=== PATIENT | female | born 1935 | race Caucasian/White ===

== ENCOUNTER 2019-04-10 12:35 | Inpatient (IN) | payer MEDICARE, OTHER ==
[~2019-04-10] VITALS: Ht 152.4 cm; Wt 77.0 kg
--- NOTE | 2019-04-10 13:21 | ERD ---
ER Documentation Chief Complaint Chief Complaint [facility] from home, c/o syncope @ 0900 HPI The patient is an 84-year-old female, presenting to the ER because she tented around 9 AM today. The detail is unclear. She does not remember what happened, the daughter found her on the floor. She denies headache, neck pain, chest pain, dyspnea, abdominal pain, vomiting, dysuria, diarrhea, fecal/urinary incontinence, tongue bite. She does not smoke nor drink He had a Holter monitor by her intellectual property paralegal Dr. Urbano about a month ago, who informed her that she may need to have a pacemaker Past medical history: CAD, hypertension, dyslipidemia, diabetes mellitus Past surgical history: Hysterectomy ROS All systems reviewed and are negative except as per history of present illness. Medications Home Meds Reported Medications Chlorhexidine Gluconate* (Chlorhexidine Gluconate*) 118 Ml Liquid, 10 ML TOP DAILY for GARGLE, ML 04/10/19 Desvenlafaxine Succinate (Desvenlafaxine Succinate ER) 25 Mg Tab.er.24h, 1 TAB ORAL DAILY 04/10/19 Icosapent Ethyl (VASCEPA) 1 Gm Capsule, 1 CAP ORAL BID 04/10/19 Linaclotide (LINZESS) 145 Mcg Capsule, 1 CAP ORAL DAILY 04/10/19 Azilsartan-Chlorthalidone (Edarbyclor) 40-25 Mg Tablet, 1 TAB ORAL DAILY 04/10/19 Cholecalciferol* (Vitamin D3*) 1,000 Unit Tablet, 2000 UNIT PO DAILY, TAB 04/10/19 Sitagliptin* (Januvia*) 100 Mg Tablet, 1 TAB ORAL QHS 04/10/19 Solifenacin* (Vesicare*) 10 Mg Tablet, 1 TAB ORAL DAILY 04/10/19 Atorvastatin (Atorvastatin) 10 Mg Tablet, 1 TAB ORAL QHS 04/10/19 Diclofenac Sodium* (Voltaren* Gel) 1% -100 Gm Gel, 2 GM TOP TID, #1 TUB 04/10/19 Isosorbide Mononitrate* (Isosorbide Mononitrate*) 60 Mg Tab.er.24h, 1 TAB ORAL DAILY 04/10/19 Aspirin* (Aspirin* EC) 81 Mg Tablet.dr, 81 MG PO DAILY, TAB 04/10/19 Diphenhydramine Hcl (Banophen) 25 Mg Capsule, 1 CAP ORAL QHS 04/10/19 Metoprolol Tartrate* (Lopressor*) 50 Mg Tab, 1 TAB ORAL BID 04/10/19 Ferrous Sulfate* (Ferrous Sulfate*) 325 Mg Tabec, 1 TAB ORAL DAILY 04/10/19 Allergies Allergies: Coded Allergies: No Known Allergy (Unverified , 04/10/19) PMhx/Soc Hx Neurological Disorder: No Hx Respiratory Disorders: No Hx Cardiac Disorders: Yes (HTN) Hx Psychiatric Problems: No Hx Miscellaneous Medical Probl: Yes (DM) Hx Alcohol Use: No Hx Substance Use: No Hx Tobacco Use: No Smoking Status: Never smoker Physical Exam Vitals Vital Signs Date Temp Pulse Resp B/P (MAP) Pulse Ox O2 O2 Flow FiO2 Time Delivery Rate 04/10/19 98.1 68 18 142/74 93 13:14 (96) Physical Exam Const: No acute distress. Head: Atraumatic. Eyes: Normal Conjunctiva. ENT: Normal External Ears, Nose and Mouth. Neck: Full range of motion. No meningismus. Resp: Clear to auscultation bilaterally. Cardio: Regular rate and rhythm. Abd: Soft, non distended, normal bowel sounds, non tender. Skin: No petechiae or rashes. Back: No midline or flank tenderness. Ext: No cyanosis, or edema. Neur: Awake and alert. No focal deficit Psych: Normal Mood and Affect. Result Diagram: 04/10/19 1344 04/10/19 1344 Results 24 hrs Laboratory Tests Test 04/10/19 13:44 04/10/19 13:50 White Blood Count 7.8 10^3/ul Red Blood Count 3.56 10^6/ul Hemoglobin 10.7 g/dl Hematocrit 33.2 % Mean Corpuscular Volume 93.3 fl Mean Corpuscular Hemoglobin 30.1 pg Mean Corpuscular Hemoglobin Concent 32.2 g/dl Red Cell Distribution Width 12.3 % Platelet Count 149 10^3/UL Mean Platelet Volume 9.5 fl Immature Granulocytes % 1.000 % Neutrophils % 60.9 % Lymphocytes % 29.7 % Monocytes % 7.4 % Eosinophils % 0.5 % Basophils % 0.5 % Nucleated Red Blood Cells % 0.0 /100WBC Immature Granulocytes # 0.080 10^3/ul Neutrophils # 4.7 10^3/ul Lymphocytes # 2.3 10^3/ul Monocytes # 0.6 10^3/ul Eosinophils # 0.0 10^3/ul Basophils # 0.0 10^3/ul Nucleated Red Blood Cells # 0.0 10^3/ul Sodium Level 142 mmol/L Potassium Level 3.8 mmol/L Chloride Level 108 mmol/L Carbon Dioxide Level 24 mmol/L Anion Gap 10 Blood Urea Nitrogen 32 mg/dl Creatinine 1.10 mg/dl Est Glomerular Filtrat Rate mL/min mL/min Glucose Level 128 mg/dl Calcium Level 9.9 mg/dl Troponin I < 0.012 ng/ml Bedside Glucose 132 mg/dL Current Medications Medications Dose Sig/Harry Start Time Status Last (Trade) Ordered Route PRN Stop Time Admin Dose Reason Admin Sodium 500 ml @ Q1H ONCE 04/10/19 DC 04/10/19 Chloride 500 mls/hr IV 15:00 16:25 04/10/19 15:59 Procedures/MDM [place] [address] Radiology Main Line: [phone] DIAGNOSTIC IMAGING REPORT Patient: MAGGI CAMACHO : 1935 Age: 84 Sex: F MR #: [id number] DOS: 04/10/19 1331 Ordering MD: AIDEE MORAN MD Location: E/R Room/Bed: PROCEDURE: CT Brain without contrast. CLINICAL INDICATION: Syncope, fall. TECHNIQUE: A CT of the brain without contrast was performed utilizing axial sections from the skull base through the vertex. One or more the following does reduction techniques were utilized: Automated exposure control, adjustment of the mA/ or kV according to patient's size, or use of iterative reconstruction technique. Total exam CTDIvol is 39 MGy and DLP is 634 mGy-cm. DICOM images are available. COMPARISON: None available. FINDINGS: The ventricles and sulci are mildly prominent indicative of volume loss. There is mild cerebellar volume loss. There is no intracranial hemorrhage, mass effect or midline shift. No abnormal intra-axial or extra-axial fluid collections are seen. The gillespie/white matter differentiation is well preserved. There are mild scattered foci of hypoattenuation in the periventricular, deep, and subcortical white matter, which are nonspecific in etiology but likely reflect chronic small vessel ischemic changes. There are mild intracranial vascular calcifications consistent with atherosclerosis. The visualized paranasal sinuses are essentially clear. IMPRESSION: 1. No acute intracranial hemorrhage, transcortical infarction or mass effect. 2. Mild intracranial atherosclerosis and chronic small vessel ischemic changes. 3. Mild generalized cerebral and cerebellar volume loss. RPTAT: HH .Tanmay Coburn MD, MD Date Time Electronically viewed and signed by .Tanmay Coburn MD, MD on 04/10/2019 14:56 .N/ CC: AIDEE MORAN MD [phone] [place] [address] Radiology Main Line: [phone] DIAGNOSTIC IMAGING REPORT Patient: MAGGI CAMACHO : 1935 Age: 84 Sex: F MR #: [id number] DOS: 04/10/19 1331 Ordering MD: AIDEE MORAN MD Location: E/R Room/Bed: PROCEDURE: XR Chest. CLINICAL INDICATION: Chest pain TECHNIQUE: Single frontal view of the chest was obtained COMPARISON: None FINDINGS: The heart is enlarged. The thoracic aorta is calcified. There are mild bibasilar atelectatic changes. There is no pleural effusion or pneumothorax. RPTAT: AA IMPRESSION: Mild cardiomegaly. Calcified aorta consistent with atherosclerotic disease. Mild bibasilar atelectatic changes. .Prosper Armendariz MD, Date Time Electronically viewed and signed by .Prosper Armendariz MD, MD on 04/10/2019 14:20 .S/ CC: AIDEE MORAN MD [phone] EKG: Read by emergency physician Rate/Rhythm: Normal Sinus Rhythm 60 beats/min QRS, ST, T-waves: No ST elevation, no T inversion, SA Impression: Abnormal EKG Consultation: I discussed the patient with her intellectual property paralegal Dr. Urbano at 2:50 PM, who was made aware of the lab, the treatment, the patient condition and he accepted the consult MEDICAL MAKING DECISION: The patient is a 84-year-old female, presenting with acute syncope, most likely due to acute cardiac arrhythmia, acute dehydration. She was treated with normal saline 500 mL IV for acute dehydration with good response. The differential diagnoses considered include but are not limited to arrhyth mogenic right ventricular dysplasia, Brugada syndrome, left ventricular hypertrophy, pulmonary embolism, QT abnormality, Aehd-Ifyxbwzna-Dcsnk. Departure Diagnosis: Primary Impression: Syncope Additional Impressions: Dehydration Anemia Condition: Stable Comments I discussed the findings with the patient. I discussed the patient with Dr Mello at 3p , who was made aware of the lab, the treatment, the patient condition. The patient is admitted to Tel Disclaimer: Inadvertent spelling and grammatical errors are likely due to EHR/dictation software use and do not reflect on the overall quality of patient care. Also, please note that the electronic time recorded on this note does not necessarily reflect the actual time of the patient encounter. AIDEE MORAN MD April 10, 2019 13:21
[2019-04-10] MEDS ORDERED: LINA145C ORAL (14:28)
[2019-04-10] MEDS ORDERED: SITA100T11 ORAL (14:28)
[2019-04-10] MEDS ORDERED: ATOR10TA65 ORAL (14:28)
[2019-04-10] MEDS ORDERED: DICL100G37 TOP (14:28)
[2019-04-10] MEDS ORDERED: ASPI-817 PO (14:28)
[2019-04-10] MEDS ORDERED: ISOS60TA ORAL (14:28)
[2019-04-10] MEDS ORDERED: DIPH25CA42 ORAL (14:28)
[2019-04-10] MEDS ORDERED: CHLO118L3 TOP (14:28)
[2019-04-10] MEDS ORDERED: METO-429 ORAL (14:28)
[2019-04-10] MEDS ORDERED: ICOS1CAP ORAL (14:28)
[2019-04-10] MEDS ORDERED: CHOL100062 PO (14:28)
[2019-04-10] MEDS ORDERED: FER325 ORAL (14:28)
[2019-04-10] MEDS ORDERED: AZIL1TAB2 ORAL (14:28)
[2019-04-10] MEDS ORDERED: SOLI10TA2 ORAL (14:28)
[2019-04-10] MEDS ORDERED: DESV25TA2 ORAL (14:28)
[2019-04-10] MEDS ORDERED: SOD CHLORIDE 0.9% 500 ML IV ONE (15:00)
--- NOTE | 2019-04-10 15:58 | CONDCODE ---
Medicare Criteria-> INP to OBS Patient still in hospital: Yes Medicare Inp->Obs Criteria met: Yes I personally scribed for AIDEE MORAN MD (MPHAM) on 04/10/19 at 15:58. Electronically submitted by Anh Gongora ([facility]). AIDEE MORAN MD April 10, 2019 15:58
[2019-04-10 17:23] VITALS: BP 118/56; PULSE 69; RESP 20
[2019-04-10 17:29] VITALS: PULSE 71
[2019-04-10 18:02] VITALS: Ht 152.4 cm; Wt 77.0 kg
[2019-04-10] MEDS: [UNRECOGNIZED DRUG - REMARK] XX SCH (19:30)
[2019-04-10 20:00] VITALS: PULSE 74
[2019-04-10 20:05] VITALS: BP 127/85; PULSE 69; RESP 18
--- NOTE | 2019-04-10 20:35 | HP ---
DATE OF ADMISSION: 04/10/2019 HISTORY OF PRESENT ILLNESS: An 84-year-old female who admitted today from the emergency room due to an episode of syncope. The patient came into the emergency room because she had an episode of almost syncope today in the morning or syncope and the daughter found her on the floor at home; therefore, she brought her to the emergency room. She did not have any chest pain. She did not have any shortn ess of breath. She did not have any nausea, vomiting, or diarrhea. She did not have any other compl ications or discomfort. 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 She came in today before time because of a similar episode. Today in the emergency room, patient had no chest p ain, no shortness of breath, no discomfort over the heart, no abdominal pain, no nausea, no vomiting. PAST MEDICAL HISTORY: The patient has medical history of syncopal episodes, bradycardia, hypertensio n, coronary artery disease, dyslipidemia, and type 2 diabetes mellitus. She does not have any other problems. No history of tobacco abuse or alcohol abuse. SURGICAL HISTORY: She has had hysterectomy in the past. ALLERGIES: NO KNOWN ALLERGIES. SOCIAL HISTORY: Negative. FAMILY HISTORY: Positive for dyslipidemia. REVIEW OF SYSTEMS: As I mentioned above, the patient denies any headaches. Denies any dizziness. D enies of any nausea or vomiting. Denies any chest pain, palpitation, or discomfort over the heart. Denies any respiratory distress, cough, or sputum production. Denies any hesitancy, urgency, or pain during urination. Denies any numbness or tingling of any side or any extremities. PHYSICAL EXAMINATION: VITAL SIGNS: Blood pressure is 142/74, heart rate 68, respiratory rate 18, saturating 93% on room ai r. GENERAL: The patient is in no acute distress, alert and oriented x2. HEENT: Head is atraumatic, normocephalic. Pupils are equal and reactive to light. Extraocular musc les are intact. Nares are clear, no obstruction, no deviation of the septum. Oral cavity: Normal o ral hygiene. Ear canals are clear, no signs of inflammation or infection. Tympanic membranes are in tact. NECK: Supple. No JVD, no surgical scars, no lymph nodes palpable over the neck. CHEST: AP contour within normal limits. BREASTS: Nipples are normal, no nipple retraction. HEART: S1, S2, regular rate and rhythm with a systolic murmur over the apex and cardiomegaly. LUNGS: Clear to auscultation, no wheezes or crackles, no abnormalities over the lungs. ABDOMEN: Soft, positive bowel sounds, no hepatosplenomegaly, no masses palpable over the abdomen and no rebound tenderness. EXTREMITIES: No edema, clubbing or cyanosis of the extremities. LABORATORY DATA: Today CBC is 7.8, hemoglobin is 10.7, hematocrit 33.2 and platelet count 149. Chem istry: Her sodium is 142, potassium 3.8, BUN 32, creatinine 1.1. IMAGING: Chest x-ray is negative. Brain CT is negative, other than some old changes and vascular ch anges; otherwise, negative. ADMITTING DIAGNOSES: Syncope, coronary artery disease, bradycardia, type 2 diabetes mellitus, and hy pertension. PLAN: The patient will have a pacemaker by Dr. Urbano tomorrow, we will continue the medications, mo nitor blood pressure and heart rate, and we will follow up with the patient. Dictated By: YOAN CARVALHO/JAGRUTI Conf#: [id number] DID#: [id number]
[2019-04-10] MEDS: ATORVASTATIN 10 MG TAB PO SCH (21:45)
[2019-04-10] MEDS: DIPHENHYDRAMINE 25 MG CAP PO SCH (21:45)
[2019-04-10] MEDS: DOCUSATE SODIUM 250 MG CAP PO SCH (21:45)
[2019-04-11] VITALS (31 sets, daily range): BP systolic 89–167; BP diastolic 52–85; PULSE 60–81; RESP 16–20
[2019-04-11] MEDS: [UNRECOGNIZED DRUG - REMARK] XX SCH (03:40)
[2019-04-11] MEDS: CHOLECALCIFEROL 2,000 UNIT CAP PO SCH (08:03)
[2019-04-11] MEDS: ISOSORBIDE MONONITRATE(SR)60 MG TAB PO SCH ×2 (08:04→14:41)
[2019-04-11] MEDS: LOSARTAN 50 MG TAB PO SCH ×2 (08:05→14:41)
--- NOTE | 2019-04-11 08:50 | PREAC ---
Date/Time of Note Date/Time of Note DATE: 04/11/19 TIME: 08:49 Anesthesia Eval and Record Evaluation Time Pre-Procedure Interview DATE: 04/11/19 TIME: 08:49 Age 84 Sex female NPO: 8 hrs Preoperative diagnosis BRADYCARDIA/A FIB Planned procedure [employer] PACEMAKER [employer] Past Medical History Past Medical History: Includes Cardio: HTN, Dyslipidemia, CAD, Arrythmia Surgery & Anesthesia Issues No known issue Meds Anticoagulation: No Beta [place] within 24 hr: Yes Reported Medications Chlorhexidine Gluconate* (Chlorhexidine Gluconate*) 118 Ml Liquid, 10 ML TOP DAILY for GARGLE, ML 04/10/19 Desvenlafaxine Succinate (Desvenlafaxine Succinate ER) 25 Mg Tab.er.24h, 1 TAB ORAL DAILY 04/10/19 Icosapent Ethyl (VASCEPA) 1 Gm Capsule, 1 CAP ORAL BID 04/10/19 Linaclotide (LINZESS) 145 Mcg Capsule, 1 CAP ORAL DAILY 04/10/19 Azilsartan-Chlorthalidone (Edarbyclor) 40-25 Mg Tablet, 1 TAB ORAL DAILY 04/10/19 Cholecalciferol* (Vitamin D3*) 1,000 Unit Tablet, 2000 UNIT PO DAILY, TAB 04/10/19 Sitagliptin* (Januvia*) 100 Mg Tablet, 1 TAB ORAL QHS 04/10/19 Solifenacin* (Vesicare*) 10 Mg Tablet, 1 TAB ORAL DAILY 04/10/19 Atorvastatin (Atorvastatin) 10 Mg Tablet, 1 TAB ORAL QHS 04/10/19 Diclofenac Sodium* (Voltaren* Gel) 1% -100 Gm Gel, 2 GM TOP TID, #1 TUB 04/10/19 Isosorbide Mononitrate* (Isosorbide Mononitrate*) 60 Mg Tab.er.24h, 1 TAB ORAL DAILY 04/10/19 Aspirin* (Aspirin* EC) 81 Mg Tablet.dr, 81 MG PO DAILY, TAB 04/10/19 Diphenhydramine Hcl (Banophen) 25 Mg Capsule, 1 CAP ORAL QHS 04/10/19 Metoprolol Tartrate* (Lopressor*) 50 Mg Tab, 1 TAB ORAL BID 04/10/19 Ferrous Sulfate* (Ferrous Sulfate*) 325 Mg Tabec, 1 TAB ORAL DAILY 04/10/19 Current Medications Atorvastatin Calcium (Lipitor) 10 mg QHS PO Last administered on 04/10/19at 21:45; Admin Dose 10 MG; Start 04/10/19 at 21:00 Cholecalciferol (Vitamin D) 2,000 unit DAILY PO ; Start 04/11/19 at 09:00 Diphenhydramine HCl (Benadryl) 25 mg QHS PO Last administered on 04/10/19at 21:45; Admin Dose 25 MG; Start 04/10/19 at 21:00 Isosorbide Mononitrate (Imdur) 60 mg DAILY PO ; Start 04/11/19 at 09:00 Losartan Potassium (Cozaar) 50 mg DAILY PO ; Start 04/11/19 at 09:00 Gemfibrozil (Lopid) 600 mg BID PO ; Start 04/11/19 at 21:00 Docusate Sodium (Colace) 250 mg HS PO Last administered on 04/10/19at 21:45; Admin Dose 250 MG; Start 04/10/19 at 21:00 Meds reviewed: Yes Allergies Coded Allergies: No Known Allergy (Unverified , 04/10/19) Allergies Reviewed: Yes Labs/Studies Labs Reviewed: Reviewed by anesthesiologist Result Diagram: 04/11/19 0507 04/11/19 0507 Laboratory Tests 04/11/19 05:07 test: N/A Studies: ECG, CXR Pre-procedure Exam Last vitals Vital Signs Date Temp Pulse Resp B/P (MAP) Pulse Ox O2 O2 Flow FiO2 Time Delivery Rate 04/11/19 74 140/67 08:43 (91) 04/11/19 98.2 20 92 07:06 04/10/19 Room Air 16:43 Airway: Adequate mouth opening, Adequate thyromental dist Mallampati: Mallampati II Teeth: Normal Lung: Normal Heart: Normal ASA Physical Status ASA physical status: 3 Emergency: None Planned Anesthetic General/MAC: MAC Planned Pain Management Parenteral pain med Pre-operative Attestations Prior to commencing anesthesia and surgery, the patient was re-evaluated, there was verification of: *The patient's identity *The results of appropriate recent lab work and preoperative vital signs *The above evaluation not changing prior to induction *Anesthetic plan, risk benefits, alternative and complications discussed with patient/family; questions answered; patient/family understands, accepts and wishes to proceed. DAVID WILD April 11, 2019 08:50
[2019-04-11] MEDS ORDERED: SOD CHLORIDE 0.9% 1,000 ML ONE (09:11)
[2019-04-11] MEDS ORDERED: LIDOCAINE 1% (MDV) 20 ML INJ ONE (09:24)
[2019-04-11] MEDS ORDERED: MIDAZOLAM 1 MG/ML 2 ML INJ ONE ×2 (09:24→09:25)
[2019-04-11] MEDS ORDERED: IODIXANOL LOCM 50 ML BTL ONE (09:24)
[2019-04-11] MEDS ORDERED: FENTAnyl 50 MCG/ML VIAL ONE (09:25)
--- NOTE | 2019-04-11 10:35 | PAC ---
Date/Time of Note Date/Time of Note DATE: 04/11/19 TIME: 10:34 Post-Anesthesia Notes Post-Anesthesia Note Last documented vital signs Vital Signs Date Temp Pulse Resp B/P (MAP) Pulse Ox O2 O2 Flow FiO2 Time Delivery Rate 04/11/19 74 140/67 1035 (91) 04/11/19 98.2 20 92 07:06 04/10/19 Room Air 16:43 Activity: WNL Respiratory function: WNL Cardiovascular function: WNL Mental status: Baseline Pain reasonably controlled: Yes Hydration appropriate: Yes Nausea/Vomiting absent: Yes DAVID WILD April 11, 2019 10:35
[2019-04-11] MEDS ORDERED: FENTAnyl 50 MCG/ML VIAL IV PRN ×2 (11:00)
[2019-04-11] MEDS ORDERED: ONDANSETRON 4 MG INJ IV PRN (11:00)
[2019-04-11] MEDS ORDERED: KETOROLAC 30 MG INJ IV PRN (11:00)
[2019-04-11] MEDS ORDERED: LABETALOL HCL 20MG INJ IV PRN (11:00)
[2019-04-11] MEDS ORDERED: OXYCODONE/ACETAMINOPHEN (5/325) TAB PO PRN ×2 (11:00)
[2019-04-11] MEDS ORDERED: EPHEDrine 25 MG/5 ML SYG IV PRN (11:00)
[2019-04-11] MEDS ORDERED: morphine 2 MG INJ IV PRN (11:00)
[2019-04-11] MEDS ORDERED: hydrALAzine 20 MG INJ IV PRN (11:00)
[2019-04-11] MEDS ORDERED: DIPHENHYDRAMINE 50 MG INJ IV PRN (11:00)
--- NOTE | 2019-04-11 12:44 | SP ---
DATE OF PROCEDURE: 04/11/2019 REFERRING PHYSICIAN: Dr. Winkler. REASON FOR IMPLANTATION. A 6 second pause symptomatic bradycardia. PROCEDURE PERFORMED: 1. Single chamber were placed and placement per fluoroscopy interpretation. 2. Upper extremity venogram. DEVICE INFORMATION: The implanted device is a [employer] Assurity MRI device 1272, serial #[id number]. RV lead is [employer] Tendril STS 2088, 52 cm, serial number [id number]. Acute threshold R-wave 11.7 millivolts, lead impedance was 30 ohms, threshold 0.75 volts at 0.4 msec. M-Mode is VVI 60. DESCRIPTION OF PROCEDURE: The informed consent was obtained, the patient was taken to the heart stat ion in condition. Anesthesiologist supervised airway sedation. Left side of the chest was pre pped and draped in usual sterile fashion, 1% lidocaine was used for local analgesia. Using #10 scalp el, a 3 cm incision was made and using cautery and blunt dissection, the pocket was created. Upper e xtremity venogram was performed to assess patency. Subclavian was cannulated using 6-Indian sheath. RV lead was advanced to RV apex. It was guided into the apex and actively fixed. Some slack was le ft inside the lead and the sheath, so the lead and sheath was pulled away. The lead was sutured to t he muscle layers with 2-0 Ethibond sutures. The lead was attached to the generator. The pocket was irrigated with antibiotic solution and the pocket. The patient tolerated the procedure well. She will have a chest x-ray, left arm sling and hopefully be discharged tomorrow. I would like to thank Dr. Winkler for referring this patient for my evaluation. Dictated By: DAWN GUZMAN MD ML/NTS Conf#: [id number] DID#: [id number] CC: YOAN WINKLER MD;*EndCC*
[2019-04-11] MEDS ORDERED: MTF1000T PO (14:41)
[2019-04-11] MEDS ORDERED: METF-849 PO (14:42)
[2019-04-11] MEDS: DOCUSATE SODIUM 250 MG CAP PO SCH (20:13)
[2019-04-11] MEDS: DIPHENHYDRAMINE 25 MG CAP PO SCH (20:13)
[2019-04-11] MEDS: GEMFIBROZIL 600 MG TAB PO SCH (20:13)
--- NOTE | 2019-04-11 20:22 | RADRPT ---
Vent Rate: 61 bpm RR Interval: 980 msec PA Interval: 133 msec QRS Duration: 110 msec QT Interval: 426 msec QTC Interval: 430 msec P-R-T Gilbert: 32 - -20 - 15 degrees Ventricular-paced complexes...other complexes also detected Incomplete left bundle branch block...QRSd>110mS, terminal axis(-90,-1) Low voltage, precordial leads...precordial leads <1.0mV Electronically Signed By: Greg Davis
[2019-04-11] MEDS: CEFAZOLIN 1 GM/50 ML (PMX) 50 ML IVPB SCH (20:23)
[2019-04-11] MEDS: ATORVASTATIN 10 MG TAB PO SCH (20:23)
[2019-04-12] VITALS (13 sets, daily range): BP systolic 104–130; BP diastolic 52–65; PULSE 70–90; RESP 17–18
[2019-04-12] MEDS: CHOLECALCIFEROL 2,000 UNIT CAP PO SCH (08:53)
[2019-04-12] MEDS: GEMFIBROZIL 600 MG TAB PO SCH ×2 (08:53→20:34)
[2019-04-12] MEDS: CEFAZOLIN 1 GM/50 ML (PMX) 50 ML IVPB SCH ×2 (08:53→20:35)
[2019-04-12] MEDS: LOSARTAN 50 MG TAB PO SCH (09:00)
[2019-04-12] MEDS: ISOSORBIDE MONONITRATE(SR)60 MG TAB PO SCH (09:00)
--- NOTE | 2019-04-12 11:31 | PN ---
Date/Time of Note Date/Time of Note DATE: 04/12/19 TIME: 11:29 Subjective Chart was reviewed. Doing well. Pain is well controlled. Objective Vitals Vital Signs Date Temp Pulse Resp B/P (MAP) Pulse Ox O2 O2 Flow FiO2 Time Delivery Rate 04/12/19 78 105/58 09:05 (74) 04/12/19 97.7 18 94 07:12 04/11/19 Nasal 2.0 17:19 Cannula Intake and Output 04/11/19 04/11/19 04/12/19 1515:00 23:00 07:00 IntakeIntake Total 1150 ml 200 ml OutputOutput Total 200 ml BalanceBalance 950 ml 200 ml Neck is supple Lungs clear to auscultation Cardiac regular rate and rhythm Abdomen soft nontender normoactive bowel sounds No edema. Left shoulder sling in place Nonfocal Results Result Diagram: 04/12/1927 04/12/19526 Medications Medications Current Medications Atorvastatin Calcium (Lipitor) 10 mg QHS PO Last administered on 04/11/19 20:23; Admin Dose 10 MG; Start 04/10/19 at 21:00 Cholecalciferol (Vitamin D) 2,000 unit DAILY PO Last administered on 04/12/19 08:53; Admin Dose 2,000 UNIT; Start 04/11/19 at 09:00 Diphenhydramine HCl (Benadryl) 25 mg QHS PO Last administered on 04/11/19 20:13; Admin Dose 25 MG; Start 04/10/19 at 21:00 Isosorbide Mononitrate (Imdur) 60 mg DAILY PO Last administered on 04/11/19 14:41; Admin Dose 60 MG; Start 04/11/19 at 09:00 Losartan Potassium (Cozaar) 50 mg DAILY PO Last administered on 04/11/19 14:41; Admin Dose 50 MG; Start 04/11/19 at 09:00 Gemfibrozil (Lopid) 600 mg BID PO Last administered on 04/12/19 08:53; Admin Dose 600 MG; Start 04/11/19 at 21:00 Docusate Sodium (Colace) 250 mg HS PO Last administered on 04/11/19 20:13; Admin Dose 250 MG; Start 04/10/19 at 21:00 Fentanyl (Sublimaze) 25 mcg PACU ORDER PRN IV MILD PAIN 1-3; Start 04/11/19 at 11:00 Fentanyl (Sublimaze) 50 mcg PACU ORDER PRN IV MOD PAIN 4-6; Start 04/11/19 at 11:00 Ketorolac Tromethamine (Toradol) 30 mg PACU ORDER PRN IV FOR PAIN AFTER IV SPARKLE COTIC MED; Start 04/11/19 at 11:00; Stop 04/14/19 at 10:59 Oxycodone/ Acetaminophen (Percocet (5/ 325)) 1 tab PACU ORDER PRN PO .PAIN 1-5; Start 04/11/19 at 11:00 Oxycodone/ Acetaminophen (Percocet (5/ 325)) 2 tab PACU ORDER PRN PO .PAIN 6-10; Start 04/11/19 at 11:00 Ondansetron HCl (Zofran Inj) 4 mg PACU ORDER PRN IV NAUSEA/VOMITING; Start 04/11/19 at 11:00 Labetalol HCl (Labetalol) 5 mg PACU ORDER PRN IV HIGH BLOOD PRESSURE; Start 04/11/19 at 11:00 Hydralazine HCl (Apresoline) 5 mg PACU ORDER PRN IV HIGH BLOOD PRESSURE; Start 04/11/19 at 11:00 Ephedrine Sulfate 5 mg PACU ORDER PRN IV BLOOD PRESSURE SUPPORT; Start 04/11/19 at 11:00 Morphine Sulfate (morphine) 2 mg Q2H PRN IV SEVERE PAIN LEVEL 7-10; Start 04/11/19 at 11:00 Cefazolin Sodium 50 ml @ 100 mls/hr Q12 IVPB Last administered on 04/12/19at 08:53; Admin Dose 100 MLS/HR; Start 04/11/19 at 21:00 Potassium Chloride (Klor-Con 10) 10 meq BID PO ; Start 04/12/19 at 21:00 VTE Prophylaxis Risk score (from Nsg)>0 risk: 8 SCD applied (from Nsg): Yes Lines/Catheters IV Catheter Type: Saline Lock Small in Place: No Assessment/Plan Assessment/Plan 84-year-old with symptomatic bradycardia Postop day 1 pacemaker placement Coronary artery disease Hypertension Type 2 diabetes mellitus Hyperlipidemia Generalized weakness Change to inpatient status Continue postop care Discharge planning to [facility] VAHE MACKENZIE MD April 12, 2019 11:31
--- NOTE | 2019-04-12 13:46 | PN ---
DATE: 04/12/2019 SUBJECTIVE: The patient was admitted through emergency room with acute episode of syncope. The yoselin ent was already scheduled for pacemaker placement in the past and therefore, she comes in for similar episodes and therefore admitted for pacemaker placement. The patient has history of coronary artery disease, hypertension, degenerative joint disease, mild Alzheimer's dementia and mild type 2 diabete s mellitus controlled with medication. The patient is today post-procedure doing very well, alert an d oriented x3 in no distress, just discomfort over a little bit over the area of the procedure. She denies of any abdominal pain, nausea, vomiting. Denies of hesitancy, urgency or pain during urinatio n. Denies of any numbness or any tingling. PHYSICAL EXAMINATION: VITAL SIGNS: Today, blood pressure is 105/58, heart rate 74, respiratory rate 18. She is afebrile. HEENT: Head is atraumatic, normocephalic. Pupils are equal and reactive to light. Extraocular musc les are intact. Nares are clear. No obstruction. No deviation of the septum. Oral cavity: Normal oral hygiene. Ear canals are clear. No signs of inflammation or infection. Tympanic membranes are intact. NECK: Supple. No JVD. No surgical scars. No lymph nodes palpable over the neck. CHEST: AP contour is within normal limits. Breasts and nipples are normal. She has a pacemaker jazzmine irina on the left side of the chest wall. ABDOMEN: Soft. Positive bowel sounds. No hepatosplenomegaly. No masses palpable over the abdomen. No rebound tenderness. EXTREMITIES: No edema, clubbing or cyanosis of the extremities. LABORATORY DATA: Today CBC: White blood cells 7.1, hemoglobin 10.2, hematocrit 31.6 and platelets 1 20. Chemistry today: Sodium 142, potassium 3.5, BUN 27, creatinine 1.1. DIAGNOSTIC DATA: Chest x-ray negative. The patient will stay today and the plan is for her to go to [facility] tomorrow for rehabilitation . ASSESSMENT AND PLAN: As I mentioned, post-pacemaker, today a little bit hypokalemia, coronary artery disease, hypertension, type 2 diabetes mellitus controlled, degenerative joint disease and dyslipide adam. Plan is to transfer to [facility] tomorrow. Dictated By: YOAN CARVALHO/JAGRUTI Conf#: [id number] [facility]#: [id number]
--- NOTE | 2019-04-12 14:32 | CONS ---
Assessment/Plan Assessment/Plan Hospital Course (Demo Recall) IMP: 1.pause s/p PPM POD#1 2.HTN 3.cad 4.DJD 5.anemia 6. Dyslipidemia Recc: -Tele -Serial ecg's -Continue lopid -Continue statin -prophylactic abx's x total of 5 days Consultation Date/Type/Reason Admit Date/Time April 12, 2019 at 11:16 Initial Consult Date 04/11/19 Type of Consult Cardiology Reason for Consultation bradycardia Requesting Provider: YOAN WINKLER MD Date/Time of Note DATE: 04/12/19 TIME: 14:28 Exam/Review of Systems Vital Signs Vitals Vital Signs Date Temp Pulse Resp B/P (MAP) Pulse Ox O2 O2 Flow FiO2 Time Delivery Rate 04/12/19 80 12:59 04/12/19 97.8 18 130/60 92 12:00 (83) 04/11/19 Nasal 2.0 17:19 Cannula Intake and Output 04/11/19 04/11/19 04/12/19 1515:00 23:00 07:00 IntakeIntake Total 1150 ml 200 ml OutputOutput Total 200 ml BalanceBalance 950 ml 200 ml Exam Exam Review of Systems: CONSTITUTIONAL: No fevers, chills. PULMONARY: No sob CARDIOVASCULAR: No chest pain/palpitations GASTROINTESTINAL: No nausea/vomiting. GENITOURINARY: No hematuria/dysuria. MUSCULOSKELETAL: No myagias/arthalgias. PSYCHIATRIC: The patient denies depression. NEUROLOGIC: No weakness Constitutional: alert, oriented Psych: no complaints Head: normocephalic ENMT: mucosa pink and moist Neck: supple, jvd (9 cm water) Respiratory: clear to auscultation Cardiovascular: regular rate and rhythm Gastrointestinal: soft, non-tender Musculoskeletal: muscle tone (normal) Extremities: edema (none) Neurological: other (No focal deficits) Labs Result Diagram: 04/12/19 0527 04/12/19 0527 Results 24hrs Laboratory Tests Test 04/11/19 16:58 04/12/19 05:27 Bedside Glucose 138 White Blood Count 7.9 Red Blood Count 3.34 L Hemoglobin 10.2 L Hematocrit 31.6 L Mean Corpuscular Volume 94.6 Mean Corpuscular Hemoglobin 30.5 Mean Corpuscular Hemoglobin Concent 32.3 Red Cell Distribution Width 12.6 Platelet Count 120 L Mean Platelet Volume 10.0 Immature Granulocytes % 0.800 H Neutrophils % 52.2 Lymphocytes % 37.8 Monocytes % 8.0 Eosinophils % 0.8 Basophils % 0.4 Nucleated Red Blood Cells % 0.0 Immature Granulocytes # 0.060 H Neutrophils # 4.1 Lymphocytes # 3.0 H Monocytes # 0.6 Eosinophils # 0.1 Basophils # 0.0 Nucleated Red Blood Cells # 0.0 Sodium Level 142 Potassium Level 3.5 Chloride Level 111 H Carbon Dioxide Level 22 Anion Gap 9 Blood Urea Nitrogen 27 H Creatinine 1.10 H Est Glomerular Filtrat Rate mL/min Glucose Level 143 Calcium Level 9.1 B-Type Natriuretic Peptide 284 Medications Medications Current Medications Atorvastatin Calcium (Lipitor) 10 mg QHS PO Last administered on 04/11/19 20:23; Admin Dose 10 MG; Start 04/10/19 at 21:00 Cholecalciferol (Vitamin D) 2,000 unit DAILY PO Last administered on 04/12/19 08:53; Admin Dose 2,000 UNIT; Start 04/11/19 at 09:00 Diphenhydramine HCl (Benadryl) 25 mg QHS PO Last administered on 04/11/19 20:13; Admin Dose 25 MG; Start 04/10/19 at 21:00 Isosorbide Mononitrate (Imdur) 60 mg DAILY PO Last administered on 04/11/19 14:41; Admin Dose 60 MG; Start 04/11/19 at 09:00 Losartan Potassium (Cozaar) 50 mg DAILY PO Last administered on 04/11/19 14:41; Admin Dose 50 MG; Start 04/11/19 at 09:00 Gemfibrozil (Lopid) 600 mg BID PO Last administered on 04/12/19 08:53; Admin Dose 600 MG; Start 04/11/19 at 21:00 Docusate Sodium (Colace) 250 mg HS PO Last administered on 04/11/19 20:13; Admin Dose 250 MG; Start 04/10/19 at 21:00 Fentanyl (Sublimaze) 25 mcg PACU ORDER PRN IV MILD PAIN 1-3; Start 04/11/19 at 11:00 Fentanyl (Sublimaze) 50 mcg PACU ORDER PRN IV MOD PAIN 4-6; Start 04/11/19 at 11:00 Ketorolac Tromethamine (Toradol) 30 mg PACU ORDER PRN IV FOR PAIN AFTER IV NARCOTIC MED; Start 04/11/19 at 11:00; Stop 04/14/19 at 10:59 Oxycodone/ Acetaminophen (Percocet (5/ 325)) 1 tab PACU ORDER PRN PO .PAIN 1-5; Start 04/11/19 at 11:00 Oxycodone/ Acetaminophen (Percocet (5/ 325)) 2 tab PACU ORDER PRN PO .PAIN 6-10; Start 04/11/19 at 11:00 Ondansetron HCl (Zofran Inj) 4 mg PACU ORDER PRN IV NAUSEA/VOMITING; Start 04/11/19 at 11:00 Labetalol HCl (Labetalol) 5 mg PACU ORDER PRN IV HIGH BLOOD PRESSURE; Start 04/11/19 at 11:00 Hydralazine HCl (Apresoline) 5 mg PACU ORDER PRN IV HIGH BLOOD PRESSURE; Start 04/11/19 at 11:00 Ephedrine Sulfate 5 mg PACU ORDER PRN IV BLOOD PRESSURE SUPPORT; Start 04/11/19 at 11:00 Morphine Sulfate (morphine) 2 mg Q2H PRN IV SEVERE PAIN LEVEL 7-10; Start 04/11/19 at 11:00 Cefazolin Sodium 50 ml @ 100 mls/hr Q12 IVPB Last administered on 04/12/19at 08 :53; Admin Dose 100 MLS/HR; Start 04/11/19 at 21:00 Potassium Chloride (Klor-Con 10) 10 meq BID PO ; Start 04/12/19 at 21:00 GINA FLOERS April 12, 2019 14:32
[2019-04-12] MEDS: POTASSIUM CHLORIDE (SR) 10 MEQ TAB PO SCH (20:34)
[2019-04-12] MEDS: DOCUSATE SODIUM 250 MG CAP PO SCH (20:34)
[2019-04-12] MEDS: ATORVASTATIN 10 MG TAB PO SCH (20:34)
[2019-04-12] MEDS: DIPHENHYDRAMINE 25 MG CAP PO SCH (20:35)
[2019-04-13] VITALS (13 sets, daily range): BP systolic 50–150; BP diastolic 60–74; PULSE 76–103; RESP 17–19
[2019-04-13] MEDS: ISOSORBIDE MONONITRATE(SR)60 MG TAB PO SCH (09:53)
[2019-04-13] MEDS: CEFAZOLIN 1 GM/50 ML (PMX) 50 ML IVPB SCH ×2 (09:54→20:36)
[2019-04-13] MEDS: LOSARTAN 50 MG TAB PO SCH (09:54)
--- NOTE | 2019-04-13 10:47 | PN ---
Date/Time of Note Date/Time of Note DATE: 04/13/19 TIME: 10:46 Subjective Doing well. No new complaints. Objective Vitals Vital Signs Date Temp Pulse Resp B/P (MAP) Pulse Ox O2 O2 Flow FiO2 Time Delivery Rate 04/13/19 97.5 84 18 114/74 94 08:20 (87) 04/11/19 Nasal 2.0 17:19 Cannula Intake and Output 04/12/19 04/12/19 04/13/19 1515:00 23:00 07:00 IntakeIntake Total 50 ml 650 ml 550 ml BalanceBalance 50 ml 650 ml 550 ml Clear to auscultation bilaterally Regular rate and rhythm Soft nontender nondistended normoactive bowel sounds No edema Nonfocal Results Result Diagram: 04/13/1951204/13/19512 Medications Medications Current Medications Atorvastatin Calcium (Lipitor) 10 mg QHS PO Last administered on 04/12/19 20:34; Admin Dose 10 MG; Start 04/10/19 at 21:00 Cholecalciferol (Vitamin D) 2,000 unit DAILY PO Last administered on 04/12/19 08:53; Admin Dose 2,000 UNIT; Start 04/11/19 at 09:00 Diphenhydramine HCl (Benadryl) 25 mg QHS PO Last administered on 04/12/19 20:35; Admin Dose 25 MG; Start 04/10/19 at 21:00 Isosorbide Mononitrate (Imdur) 60 mg DAILY PO Last administered on 04/13/19 09:53; Admin Dose 60 MG; Start 04/11/19 at 09:00 Losartan Potassium (Cozaar) 50 mg DAILY PO Last administered on 04/13/19 09:54; Admin Dose 50 MG; Start 04/11/19 at 09:00 Gemfibrozil (Lopid) 600 mg BID PO Last administered on 04/12/19 20:34; Admin Dose 600 MG; Start 04/11/19 at 21:00 Docusate Sodium (Colace) 250 mg HS PO Last administered on 04/12/19 20:34; Admin Dose 250 MG; Start 04/10/19 at 21:00 Fentanyl (Sublimaze) 25 mcg PACU ORDER PRN IV MILD PAIN 1-3; Start 04/11/19 at 11:00 Fentanyl (Sublimaze) 50 mcg PACU ORDER PRN IV MOD PAIN 4-6; Start 04/11/19 at 11:00 Ketorolac Tromethamine (Toradol) 30 mg PACU ORDER PRN IV FOR PAIN AFTER IV NARCOTIC MED; Start 04/11/19 at 11:00; Stop 04/14/19 at 10:59 Oxycodone/ Acetaminophen (Percocet (5/ 325)) 1 tab PACU ORDER PRN PO .PAIN 1-5; Start 04/11/19 at 11:00 Oxycodone/ Acetaminophen (Percocet (5/ 325)) 2 tab PACU ORDER PRN PO .PAIN 6-10; Start 04/11/19 at 11:00 Ondansetron HCl (Zofran Inj) 4 mg PACU ORDER PRN IV NAUSEA/VOMITING; Start 04/11/19 at 11:00 Labetalol HCl (Labetalol) 5 mg PACU ORDER PRN IV HIGH BLOOD PRESSURE; Start 04/11/19 at 11:00 Hydralazine HCl (Apresoline) 5 mg PACU ORDER PRN IV HIGH BLOOD PRESSURE; Start 04/11/19 at 11:00 Ephedrine Sulfate 5 mg PACU ORDER PRN IV BLOOD PRESSURE SUPPORT; Start 04/11/19 at 11:00 Morphine Sulfate (morphine) 2 mg Q2H PRN IV SEVERE PAIN LEVEL 7-10; Start 04/11/19 at 11:00 Cefazolin Sodium 50 ml @ 100 mls/hr Q12 IVPB Last administered on 04/13/19at 09:54; Admin Dose 100 MLS/HR; Start 04/11/19 at 21:00 Potassium Chloride (Klor-Con 10) 10 meq BID PO Last administered on 04/12/19at 20:34; Admin Dose 10 MEQ; Start 04/12/19 at 21:00 VTE Prophylaxis Risk score (from Nsg)>0 risk: 8 SCD applied (from Nsg): Yes Lines/Catheters IV Catheter Type: Saline Lock Small in Place: No Assessment/Plan Assessment/Plan 84-year-old female with symptomatic bradycardia Postop day #2 pacemaker placement Coronary artery disease, stable Hypertension Type 2 diabetes mellitus Arthritis Continue postop care Discharge planning to [facility] [place] Plan of care was discussed with her daughter at the bedside VAHE MACKENZIE MD April 13, 2019 10:47
[2019-04-13] MEDS ORDERED: LACT20SO2 PO (10:56)
[2019-04-13] MEDS ORDERED: PANT40TA4 PO (10:56)
--- NOTE | 2019-04-13 10:58 | PDOCDIS ---
Discharge Instructions CONDITION [id number] Patient Condition: [id number] Fair HOME CARE INSTRUCTIONS: [id number] Diet Instructions: [id number] Activity Restrictions: [id number] Slowly Increase Activity FOLLOW UP/APPOINTMENTS Follow-up Plan pcp [address] Urbano 1 week VAHE MACKENZIE MD April 13, 2019 10:58
[2019-04-13] MEDS ORDERED: LACTULOSE 30ML CUP PO PRN (11:00)
--- NOTE | 2019-04-13 11:41 | CONS ---
Assessment/Plan Assessment/Plan Hospital Course (Demo Recall) IMP: 1.pause s/p PPM POD#1 2.HTN 3.cad 4.DJD 5.anemia 6. Dyslipidemia Recc: -Tele -Serial ecg's -Continue lopid -Continue statin -prophylactic abx's x total of 5 days -ok for d/c from cardiac standpoint Consultation Date/Type/Reason Admit Date/Time April 12, 2019 at 11:16 Initial Consult Date 04/11/19 Type of Consult Cardiology Reason for Consultation bradycardia Requesting Provider: YOAN WINKLER MD Date/Time of Note DATE: 04/13/19 TIME: 11:38 Exam/Review of Systems Vital Signs Vitals Vital Signs Date Temp Pulse Resp B/P (MAP) Pulse Ox O2 O2 Flow FiO2 Time Delivery Rate 04/13/19 2.0 08:33 04/13/19 97.5 84 18 114/74 94 08:20 (87) 04/11/19 Nasal 17:19 Cannula Intake and Output 04/12/19 04/12/19 04/13/19 1515:00 23:00 07:00 IntakeIntake Total 50 ml 650 ml 550 ml BalanceBalance 50 ml 650 ml 550 ml Exam Exam Review of Systems: CONSTITUTIONAL: No fevers, chills. PULMONARY: No sob CARDIOVASCULAR: No chest pain/palpitations GASTROINTESTINAL: No nausea/vomiting. GENITOURINARY: No hematuria/dysuria. MUSCULOSKELETAL: No myagias/arthalgias. PSYCHIATRIC: The patient denies depression. NEUROLOGIC: No weakness Constitutional: alert Psych: no complaints Head: normocephalic ENMT: mucosa pink and moist Neck: supple, jvd (9 cm water) Respiratory: clear to auscultation Cardiovascular: regular rate and rhythm Gastrointestinal: soft, non-tender Musculoskeletal: muscle tone (normal) Extremities: pitting pedal edema (LE bilateral) Neurological: other (No focal deficits) Labs Result Diagram: 04/13/19 0513 04/13/1913 Results 24hrs Laboratory Tests Test 04/13/19 05:13 White Blood Count 6.9 Red Blood Count 3.58 L Hemoglobin 10.8 L Hematocrit 33.2 L Mean Corpuscular Volume 92.7 Mean Corpuscular Hemoglobin 30.2 Mean Corpuscular Hemoglobin Concent 32.5 Red Cell Distribution Width 12.4 Platelet Count 120 L Mean Platelet Volume 10.0 Immature Granulocytes % 0.900 H Neutrophils % 50.9 Lymphocytes % 38.4 Monocytes % 8.8 Eosinophils % 0.6 Basophils % 0.4 Nucleated Red Blood Cells % 0.0 Immature Granulocytes # 0.060 H Neutrophils # 3.5 Lymphocytes # 2.7 Monocytes # 0.6 Eosinophils # 0.0 Basophils # 0.0 Nucleated Red Blood Cells # 0.0 Sodium Level 142 Potassium Level 3.7 Chloride Level 109 Carbon Dioxide Level 25 Anion Gap 8 Blood Urea Nitrogen 26 H Creatinine 0.89 Est Glomerular Filtrat Rate mL/min Glucose Level 161 Calcium Level 9.7 B-Type Natriuretic Peptide 133 Medications Medications Current Medications Atorvastatin Calcium (Lipitor) 10 mg QHS PO Last administered on 04/12/19 20 :34; Admin Dose 10 MG; Start 04/10/19 at 21:00 Cholecalciferol (Vitamin D) 2,000 unit DAILY PO Last administered on 04/12/19 08:53; Admin Dose 2,000 UNIT; Start 04/11/19 at 09:00 Diphenhydramine HCl (Benadryl) 25 mg QHS PO Last administered on 04/12/19 20:35; Admin Dose 25 MG; Start 04/10/19 at 21:00 Isosorbide Mononitrate (Imdur) 60 mg DAILY PO Last administered on 04/13/19 09:53; Admin Dose 60 MG; Start 04/11/19 at 09:00 Losartan Potassium (Cozaar) 50 mg DAILY PO Last administered on 04/13/19 09:54; Admin Dose 50 MG; Start 04/11/19 at 09:00 Gemfibrozil (Lopid) 600 mg BID PO Last administered on 04/12/19 20:34; Admin Dose 600 MG; Start 04/11/19 at 21:00 Docusate Sodium (Colace) 250 mg HS PO Last administered on 04/12/19 20:34; Admin Dose 250 MG; Start 04/10/19 at 21:00 Fentanyl (Sublimaze) 25 mcg PACU ORDER PRN IV MILD PAIN 1-3; Start 04/11/19 at 11:00 Fentanyl (Sublimaze) 50 mcg PACU ORDER PRN IV MOD PAIN 4-6; Start 04/11/19 at 11:00 Ketorolac Tromethamine (Toradol) 30 mg PACU ORDER PRN IV FOR PAIN AFTER IV NARCOTIC MED; Start 04/11/19 at 11:00; Stop 04/14/19 at 10:59 Oxycodone/ Acetaminophen (Percocet (5/ 325)) 1 tab PACU ORDER PRN PO .PAIN 1-5; Start 04/11/19 at 11:00 Oxycodone/ Acetaminophen (Percocet (5/ 325)) 2 tab PACU ORDER PRN PO .PAIN 6-10; Start 04/11/19 at 11:00 Ondansetron HCl (Zofran Inj) 4 mg PACU ORDER PRN IV NAUSEA/VOMITING; Start 04/11/19 at 11:00 Labetalol HCl (Labetalol) 5 mg PACU ORDER PRN IV HIGH BLOOD PRESSURE; Start 04/11/19 at 11:00 Hydralazine HCl (Apresoline) 5 mg PACU ORDER PRN IV HIGH BLOOD PRESSURE; Start 04/11/19 at 11:00 Ephedrine Sulfate 5 mg PACU ORDER PRN IV BLOOD PRESSURE SUPPORT; Start 04/11/19 at 11:00 Morphine Sulfate (morphine) 2 mg Q2H PRN IV SEVERE PAIN LEVEL 7-10; Start 04/11/19 at 11:00 Cefazolin Sodium 50 ml @ 100 mls/hr Q12 IVPB Last administered on 04/13/19at 09:54; Admin Dose 100 MLS/HR; Start 04/11/19 at 21:00 Potassium Chloride (Klor-Con 10) 10 meq BID PO Last administered on 04/12/19at 20:34; Admin Dose 10 MEQ; Start 04/12/19 at 21:00 Lactulose (Enulose) 20 gm DAILY PRN PO CONSTIPATION; Start 04/13/19 at 11:00 Pantoprazole (Protonix Tab) 40 mg DAILY@06 PO ; Start 04/14/19 at 06:00 GINA FLORES April 13, 2019 11:41
[2019-04-13] MEDS: GEMFIBROZIL 600 MG TAB PO SCH ×2 (12:02→20:35)
[2019-04-13] MEDS: CHOLECALCIFEROL 2,000 UNIT CAP PO SCH (12:02)
[2019-04-13] MEDS: POTASSIUM CHLORIDE (SR) 10 MEQ TAB PO SCH ×2 (12:02→20:35)
[2019-04-13] MEDS ORDERED: GLUCOSE GEL 15 GRAM TUBE BUCCAL PRN (19:30)
[2019-04-13] MEDS ORDERED: GLUCAGON 1 MG INJ IM PRN (19:30)
[2019-04-13] MEDS ORDERED: DEXTROSE 50% 50 ML SYRINGE IV PRN ×2 (19:30)
[2019-04-13] MEDS ORDERED: GLUCOSE GEL 15 GRAM TUBE PO PRN ×2 (19:30)
[2019-04-13] MEDS: DOCUSATE SODIUM 250 MG CAP PO SCH (20:35)
[2019-04-13] MEDS: ATORVASTATIN 10 MG TAB PO SCH (20:35)
[2019-04-13] MEDS: DIPHENHYDRAMINE 25 MG CAP PO SCH (20:36)
[2019-04-13] MEDS: ACCU-CHEK XX SCH ×2 (20:44→20:45)
[2019-04-14] VITALS (11 sets, daily range): BP systolic 112–133; BP diastolic 55–73; PULSE 51–104; RESP 17–20
[2019-04-14] MEDS: ACCU-CHEK XX SCH ×8 (06:57→20:18)
[2019-04-14] MEDS: PANTOPRAZOLE (EC) 40 MG TAB PO SCH (06:57)
[2019-04-14] MEDS: metFORMIN 500 MG TAB PO SCH (07:37)
--- NOTE | 2019-04-14 08:30 | DS ---
DATE OF ADMISSION: 04/12/2019 DATE OF DISCHARGE: 04/13/2019 DISCHARGE DIAGNOSES: 1. An 84-year-old female with symptomatic bradycardia. 2. Status post pacemaker placement. 3. Coronary artery disease. 4. Hypertension. 5. Type 2 diabetes mellitus. 6. Hyperlipidemia. 7. Osteoarthritis. 8. History of compression fractures. HOSPITAL COURSE: An 84-year-old female with multiple noted medical problems, presented to Emergency Room with a syncopal episode. Initial evaluation revealed marked bradycardia. There was no head tra bre. She was seen in consultation by Dr. Urbano and underwent a pacemaker placement. There were no intraoperative or postoperative complications. Patient depends on a walker in order to ambulate. Manjeet davis had a difficult time ambulating especially because the left arm was in a sling. Her daughter reque [facility] care home facility. This was arranged. The patient is in a stable condition for transiti on to [facility]. MEDICATIONS ON DISCHARGE: 1. Lactulose 20 grams daily. 2. Protonix 40 mg daily. 3. Aspirin 81 mg daily. 4. Atorvastatin 10 mg at bedtime. 5. Edarbyclor 1 tablet daily. 6. Fluoxetine succinate 25 mg daily. 7. Diclofenac gel 2 gram topical t.i.d. 8. Ferrous sulfate 325 mg daily. 9. Diphenhydramine 25 mg at bedtime. 10. Vascepa 1 capsule b.i.d. 11. Isosorbide mononitrate 60 mg daily. 12. Linzess 1 tablet daily, 145 mcg. 13. Metformin 500 mg at night and 1000 mg in the morning. 14. Lopressor 50 mg b.i.d. 15. Januvia 100 mg at bedtime. 16. Vesicare 10 mg daily. PLAN: 1. Continue physical therapy. 2. Follow up with PCP and Dr. Urbano. Dictated By: VAHE WARD/NTS Conf#: [id number] DID#: [id number] CC: YOAN WINKLER MD; DAWN URBANO MD;*EndCC*
[2019-04-14] MEDS: CEFAZOLIN 1 GM/50 ML (PMX) 50 ML IVPB SCH ×2 (08:59→20:18)
[2019-04-14] MEDS: ISOSORBIDE MONONITRATE(SR)60 MG TAB PO SCH (09:01)
[2019-04-14] MEDS: LOSARTAN 50 MG TAB PO SCH (09:01)
--- NOTE | 2019-04-14 09:51 | PN ---
Date/Time of Note Date/Time of Note DATE: 04/14/19 TIME: 09:49 Subjective Doing well. No complaint of pain. Objective Vitals Vital Signs Date Temp Pulse Resp B/P (MAP) Pulse Ox O2 O2 Flow FiO2 Time Delivery Rate 04/14/19 92 08:15 04/14/19 98.3 20 114/68 93 Nasal 07:16 (83) Cannula 04/13/19 2.0 20:00 Intake and Output 04/13/19 04/13/19 04/14/19 1515:00 23:00 07:00 IntakeIntake Total 50 ml 700 ml 500 ml BalanceBalance 50 ml 700 ml 500 ml Clear to auscultation bilaterally Regular rate and rhythm no murmurs or gallops Soft nontender nondistended normoactive bowel sounds No edema. Left shoulder sling in place Nonfocal Results Result Diagram: 04/13/1951204/13/19512 Medications Medications Current Medications Atorvastatin Calcium (Lipitor) 10 mg QHS PO Last administered on 04/13/19 20:35; Admin Dose 10 MG; Start 04/10/19 at 21:00 Cholecalciferol (Vitamin D) 2,000 unit DAILY PO Last administered on 04/13/19 12:02; Admin Dose 2,000 UNIT; Start 04/11/19 at 09:00 Diphenhydramine HCl (Benadryl) 25 mg QHS PO Last administered on 04/13/19 20:36; Admin Dose 25 MG; Start 04/10/19 at 21:00 Isosorbide Mononitrate (Imdur) 60 mg DAILY PO Last administered on 04/14/19 09:01; Admin Dose 60 MG; Start 04/11/19 at 09:00 Losartan Potassium (Cozaar) 50 mg DAILY PO Last administered on 04/14/19 09:01; Admin Dose 50 MG; Start 04/11/19 at 09:00 Gemfibrozil (Lopid) 600 mg BID PO Last administered on 04/13/19 20:35; Admin Dose 600 MG; Start 04/11/19 at 21:00 Docusate Sodium (Colace) 250 mg HS PO Last administered on 04/13/19 20:35; Admin Dose 250 MG; Start 04/10/19 at 21:00 Fentanyl (Sublimaze) 25 mcg PACU ORDER PRN IV MILD PAIN 1-3; Start 04/11/19 at 11:00 Fentanyl (Sublimaze) 50 mcg PACU ORDER PRN IV MOD PAIN 4-6; Start 04/11/19 at 11:00 Ketorolac Tromethamine (Toradol) 30 mg PACU ORDER PRN IV FOR PAIN AFTER IV NARCOTIC MED; Start 04/11/19 at 11:00; Stop 04/14/19 at 10:59 Oxycodone/ Acetaminophen (Percocet (5/ 325)) 1 tab PACU ORDER PRN PO .PAIN 1-5; Start 04/11/19 at 11:00 Oxycodone/ Acetaminophen (Percocet (5/ 325)) 2 tab PACU ORDER PRN PO .PAIN 6-10; Start 04/11/19 at 11:00 Ondansetron HCl (Zofran Inj) 4 mg PACU ORDER PRN IV NAUSEA/VOMITING; Start 04/11/19 at 11:00 Labetalol HCl (Labetalol) 5 mg PACU ORDER PRN IV HIGH BLOOD PRESSURE; Start 04/11/19 at 11:00 Hydralazine HCl (Apresoline) 5 mg PACU ORDER PRN IV HIGH BLOOD PRESSURE; Start 04/11/19 at 11:00 Ephedrine Sulfate 5 mg PACU ORDER PRN IV BLOOD PRESSURE SUPPORT; Start 04/11/19 at 11:00 Morphine Sulfate (morphine) 2 mg Q2H PRN IV SEVERE PAIN LEVEL 7-10; Start 04/11/19 at 11:00 Cefazolin Sodium 50 ml @ 100 mls/hr Q12 IVPB Last administered on 04/14/19at 08:59; Admin Dose 100 MLS/HR; Start 04/11/19 at 21:00 Potassium Chloride (Klor-Con 10) 10 meq BID PO Last administered on 04/13/19at 20:35; Admin Dose 10 MEQ; Start 04/12/19 at 21:00 Lactulose (Enulose) 20 gm DAILY PRN PO CONSTIPATION; Start 04/13/19 at 11:00 Pantoprazole (Protonix Tab) 40 mg DAILY@06 PO Last administered on 04/14/19at 06:57; Admin Dose 40 MG; Start 04/14/19 at 06:00 Metformin HCl (Glucophage) 500 mg WITH DINNER PO ; Start 04/14/19 at 18:00 Diagnostic Test (Pha) (Accu-Chek) 1 ea AC MEALS AND BEDTIME XX Last administered on 04/14/19at 06:57; Admin Dose 1 EA; Start 04/13/19 at 21:00 Metformin HCl (Glucophage) 1,000 mg WITH BREAKFAST PO Last administered on 04/14/19at 07:37; Admin Dose 1,000 MG; Start 04/14/19 at 08:00 Diagnostic Test (Pha) (Accu-Chek) 1 ea AC MEALS AND BEDTIME XX ; Start 04/13/19 at 21:00 Miscellaneous Information 1 ea NOTE XX ; Start 04/13/19 at 19:30 Glucose (Glutose) 15 gm Q15M PRN PO DECREASED GLUCOSE; Start 04/13/19 at 19:30 Glucose (Glutose) 22.5 gm Q15M PRN PO DECREASED GLUCOSE; Start 04/13/19 at 19:30 Dextrose (D50w Syringe) 25 ml Q15M PRN IV DECREASED GLUCOSE; Start 04/13/19 at 19:30 Dextrose (D50w Syringe) 50 ml Q15M PRN IV DECREASED GLUCOSE; Start 04/13/19 at 19:30 Glucagon (Glucagen) 1 mg Q15M PRN IM DECREASED GLUCOSE; Start 04/13/19 at 19:30 Glucose (Glutose) 15 gm Q15M PRN BUCCAL DECREASED GLUCOSE; Start 04/13/19 at 19:30 VTE Prophylaxis Risk score (from Nsg)>0 risk: 9 SCD applied (from Nsg): Yes Lines/Catheters IV Catheter Type: Saline Lock Small in Place: No Assessment/Plan Assessment/Plan 84-year-old female with symptomatic bradycardia Postop day #3 pacemaker placement Coronary artery disease, stable Hypertension Type 2 diabetes mellitus Hyperlipidemia Osteoarthritis History of compression fractures Continue current therapy Await discharge to intermediate facility VAHE MACKENZIE MD April 14, 2019 09:51
[2019-04-14] MEDS: POTASSIUM CHLORIDE (SR) 10 MEQ TAB PO SCH ×2 (11:43→20:19)
[2019-04-14] MEDS: GEMFIBROZIL 600 MG TAB PO SCH ×2 (11:43→20:19)
[2019-04-14] MEDS: CHOLECALCIFEROL 2,000 UNIT CAP PO SCH (11:44)
--- NOTE | 2019-04-14 12:27 | CONS ---
Assessment/Plan Assessment/Plan Hospital Course (Demo Recall) IMP: 1.pause s/p PPM POD#1 2.HTN 3.cad 4.DJD 5.anemia 6. Dyslipidemia Recc: -Tele -Serial ecg's -Continue lopid -Continue statin -prophylactic abx's x total of 5 days -ok for d/c from cardiac standpoint -pnding placement in SNF Consultation Date/Type/Reason Admit Date/Time April 12, 2019 at 11:16 Initial Consult Date 04/11/19 Type of Consult Cardiology Reason for Consultation s/p PPM Requesting Provider: YOAN WINKLER MD Date/Time of Note DATE: 04/14/19 TIME: 12:24 Exam/Review of Systems Vital Signs Vitals Vital Signs Date Temp Pulse Resp B/P (MAP) Pulse Ox O2 O2 Flow FiO2 Time Delivery Rate 04/14/19 98.3 94 20 112/63 93 Room Air 11:34 (79) 04/13/19 2.0 20:00 Intake and Output 04/13/19 04/13/19 04/14/19 1414:59 22:59 06:59 IntakeIntake Total 50 ml 700 ml 500 ml BalanceBalance 50 ml 700 ml 500 ml Exam Exam Review of Systems: CONSTITUTIONAL: No fevers, chills. PULMONARY: No sob CARDIOVASCULAR: No chest pain/palpitations GASTROINTESTINAL: No nausea/vomiting. GENITOURINARY: No hematuria/dysuria. MUSCULOSKELETAL: No myagias/arthalgias. PSYCHIATRIC: The patient denies depression. NEUROLOGIC: No weakness Constitutional: alert, oriented Psych: no complaints Head: normocephalic ENMT: mucosa pink and moist Neck: supple, jvd (9 cm water) Respiratory: clear to auscultation Cardiovascular: other (pacer pocket covered by dressing with dried blood) Labs Result Diagram: 04/13/19 0513 04/13/19 0513 Results 24hrs Laboratory Tests Test 04/13/19 20:42 04/14/19 06:56 04/14/19 11:42 Bedside Glucose 244 H 165 221 H Medications Medications Current Medications Atorvastatin Calcium (Lipitor) 10 mg QHS PO Last administered on 04/13/19at 20:35; Admin Dose 10 MG; Start 04/10/19 at 21:00 Cholecalciferol (Vitamin D) 2,000 unit DAILY PO Last administered on 04/14/19 11:44; Admin Dose 2,000 UNIT; Start 04/11/19 at 09:00 Diphenhydramine HCl (Benadryl) 25 mg QHS PO Last administered on 04/13/19at 20:36; Admin Dose 25 MG; Start 04/10/19 at 21:00 Isosorbide Mononitrate (Imdur) 60 mg DAILY PO Last administered on 04/14/19 09:01; Admin Dose 60 MG; Start 04/11/19 at 09:00 Losartan Potassium (Cozaar) 50 mg DAILY PO Last administered on 04/14/19 09:01; Admin Dose 50 MG; Start 04/11/19 at 09:00 Gemfibrozil (Lopid) 600 mg BID PO Last administered on 04/14/19 11:43; Admin Dose 600 MG; Start 04/11/19 at 21:00 Docusate Sodium (Colace) 250 mg HS PO Last administered on 04/13/19 20:35; Admin Dose 250 MG; Start 04/10/19 at 21:00 Fentanyl (Sublimaze) 25 mcg PACU ORDER PRN IV MILD PAIN 1-3; Start 04/11/19 at 11:00 Fentanyl (Sublimaze) 50 mcg PACU ORDER PRN IV MOD PAIN 4-6; Start 04/11/19 at 11:00 Oxycodone/ Acetaminophen (Percocet (5/ 325)) 1 tab PACU ORDER PRN PO .PAIN 1-5; Start 04/11/19 at 11:00 Oxycodone/ Acetaminophen (Percocet (5/ 325)) 2 tab PACU ORDER PRN PO .PAIN 6-10; Start 04/11/19 at 11:00 Ondansetron HCl (Zofran Inj) 4 mg PACU ORDER PRN IV NAUSEA/VOMITING; Start 04/11/19 at 11:00 Labetalol HCl (Labetalol) 5 mg PACU ORDER PRN IV HIGH BLOOD PRESSURE; Start 04/11/19 at 11:00 Hydralazine HCl (Apresoline) 5 mg PACU ORDER PRN IV HIGH BLOOD PRESSURE; Start 04/11/19 at 11:00 Ephedrine Sulfate 5 mg PACU ORDER PRN IV BLOOD PRESSURE SUPPORT; Start 04/11/19 at 11:00 Morphine Sulfate (morphine) 2 mg Q2H PRN IV SEVERE PAIN LEVEL 7-10; Start 04/11/19 at 11:00 Cefazolin Sodium 50 ml @ 100 mls/hr Q12 IVPB Last administered on 04/14/19at 08:59; Admin Dose 100 MLS/HR; Start 04/11/19 at 21:00 Potassium Chloride (Klor-Con 10) 10 meq BID PO Last administered on 04/14/19at 11:43; Admin Dose 10 MEQ; Start 04/12/19 at 21:00 Lactulose (Enulose) 20 gm DAILY PRN PO CONSTIPATION; Start 04/13/19 at 11:00 Pantoprazole (Protonix Tab) 40 mg DAILY@06 PO Last administered on 04/14/19at 06:57; Admin Dose 40 MG; Start 04/14/19 at 06:00 Metformin HCl (Glucophage) 500 mg WITH DINNER PO ; Start 04/14/19 at 18:00 Diagnostic Test (Pha) (Accu-Chek) 1 ea AC MEALS AND BEDTIME XX Last administered on 04/14/19at 11:42; Admin Dose 1 EA; Start 04/13/19 at 21:00 Metformin HCl (Glucophage) 1,000 mg WITH BREAKFAST PO Last administered on 04/14/19at 07:37; Admin Dose 1,000 MG; Start 04/14/19 at 08:00 Diagnostic Test (Pha) (Accu-Chek) 1 ea AC MEALS AND BEDTIME XX ; Start 04/13/19 at 21:00 Miscellaneous Information 1 ea NOTE XX ; Start 04/13/19 at 19:30 Glucose (Glutose) 15 gm Q15M PRN PO DECREASED GLUCOSE; Start 04/13/19 at 19:30 Glucose (Glutose) 22.5 gm Q15M PRN PO DECREASED GLUCOSE; Start 04/13/19 at 19:30 Dextrose (D50w Syringe) 25 ml Q15M PRN IV DECREASED GLUCOSE; Start 04/13/19 at 19:30 Dextrose (D50w Syringe) 50 ml Q15M PRN IV DECREASED GLUCOSE; Start 04/13/19 at 19:30 Glucagon (Glucagen) 1 mg Q15M PRN IM DECREASED GLUCOSE; Start 04/13/19 at 19:30 Glucose (Glutose) 15 gm Q15M PRN BUCCAL DECREASED GLUCOSE; Start 04/13/19 at 19:30 GINA FLORES April 14, 2019 12:27
[2019-04-14] MEDS ORDERED: metFORMIN 500 MG TAB PO SCH (18:00)
[2019-04-14] MEDS: DOCUSATE SODIUM 250 MG CAP PO SCH (20:19)
[2019-04-14] MEDS: DIPHENHYDRAMINE 25 MG CAP PO SCH (20:19)
[2019-04-14] MEDS: ATORVASTATIN 10 MG TAB PO SCH (20:42)
[2019-04-15] VITALS (8 sets, daily range): BP systolic 100–138; BP diastolic 60–72; PULSE 83–99; RESP 18–20
[2019-04-15] MEDS: PANTOPRAZOLE (EC) 40 MG TAB PO SCH (06:26)
[2019-04-15] MEDS: ACCU-CHEK XX SCH ×4 (06:28→11:41)
[2019-04-15] MEDS: metFORMIN 500 MG TAB PO SCH (08:06)
[2019-04-15] MEDS: CEFAZOLIN 1 GM/50 ML (PMX) 50 ML IVPB SCH (08:47)
[2019-04-15] MEDS: CHOLECALCIFEROL 2,000 UNIT CAP PO SCH (08:48)
[2019-04-15] MEDS: POTASSIUM CHLORIDE (SR) 10 MEQ TAB PO SCH (08:49)
[2019-04-15] MEDS: LOSARTAN 50 MG TAB PO SCH (08:49)
[2019-04-15] MEDS: ISOSORBIDE MONONITRATE(SR)60 MG TAB PO SCH (08:49)
[2019-04-15] MEDS: GEMFIBROZIL 600 MG TAB PO SCH (08:49)
[2019-04-15] MEDS ORDERED: METF-849 PO ×2 (09:20)
--- NOTE | 2019-04-15 09:22 | PN ---
Date/Time of Note Date/Time of Note DATE: 04/15/19 TIME: 09:20 Subjective Doing well. No new complaints. Sitting in chair Objective Vitals Vital Signs Date Temp Pulse Resp B/P (MAP) Pulse Ox O2 O2 Flow FiO2 Time Delivery Rate 04/15/19 99 08:01 04/15/19 98.3 20 115/61 94 07:11 (79) 04/15/19 Nasal 03:49 Cannula 04/13/19 2.0 20:00 Intake and Output 04/14/19 04/14/19 04/15/19 1515:00 23:00 07:00 IntakeIntake Total 880 ml 300 ml BalanceBalance 880 ml 300 ml Clear to auscultation bilaterally Regular rate and rhythm Soft nontender nondistended normoactive bowel sounds No edema Nonfocal Results Result Diagram: 04/13/19 0513 04/13/19 0513 Medications Medications Current Medications Atorvastatin Calcium (Lipitor) 10 mg QHS PO Last administered on 04/14/19 20:42; Admin Dose 10 MG; Start 04/10/19 at 21:00 Cholecalciferol (Vitamin D) 2,000 unit DAILY PO Last administered on 04/15/19 08:48; Admin Dose 2,000 UNIT; Start 04/11/19 at 09:00 Diphenhydramine HCl (Benadryl) 25 mg QHS PO Last administered on 04/14/19 20:19; Admin Dose 25 MG; Start 04/10/19 at 21:00 Isosorbide Mononitrate (Imdur) 60 mg DAILY PO Last administered on 04/15/19 08:49; Admin Dose 60 MG; Start 04/11/19 at 09:00 Losartan Potassium (Cozaar) 50 mg DAILY PO Last administered on 04/15/19 08:49; Admin Dose 50 MG; Start 04/11/19 at 09:00 Gemfibrozil (Lopid) 600 mg BID PO Last administered on 04/15/19 08:49; Admin Dose 600 MG; Start 04/11/19 at 21:00 Docusate Sodium (Colace) 250 mg HS PO Last administered on 04/14/19 20:19; Admin Dose 250 MG; Start 04/10/19 at 21:00 Fentanyl (Sublimaze) 25 mcg PACU ORDER PRN IV MILD PAIN 1-3; Start 04/11/19 at 11:00 Fentanyl (Sublimaze) 50 mcg PACU ORDER PRN IV MOD PAIN 4-6; Start 04/11/19 at 11:00 Oxycodone/ Acetaminophen (Percocet (5/ 325)) 1 tab PACU ORDER PRN PO .PAIN 1-5; Start 04/11/19 at 11:00 Oxycodone/ Acetaminophen (Percocet (5/ 325)) 2 tab PACU ORDER PRN PO .PAIN 6-10; Start 04/11/19 at 11:00 Ondansetron HCl (Zofran Inj) 4 mg PACU ORDER PRN IV NAUSEA/VOMITING; Start 04/11/19 at 11:00 Labetalol HCl (Labetalol) 5 mg PACU ORDER PRN IV HIGH BLOOD PRESSURE; Start 04/11/19 at 11:00 Hydralazine HCl (Apresoline) 5 mg PACU ORDER PRN IV HIGH BLOOD PRESSURE; Start 04/11/19 at 11:00 Ephedrine Sulfate 5 mg PACU ORDER PRN IV BLOOD PRESSURE SUPPORT; Start 04/11/19 at 11:00 Morphine Sulfate (morphine) 2 mg Q2H PRN IV SEVERE PAIN LEVEL 7-10; Start 04/11/19 at 11:00 Cefazolin Sodium 50 ml @ 100 mls/hr Q12 IVPB Last administered on 04/15/19at 08:47; Admin Dose 100 MLS/HR; Start 04/11/19 at 21:00 Potassium Chloride (Klor-Con 10) 10 meq BID PO Last administered on 04/15/19at 08:49; Admin Dose 10 MEQ; Start 04/12/19 at 21:00 Lactulose (Enulose) 20 gm DAILY PRN PO CONSTIPATION; Start 04/13/19 at 11:00 Pantoprazole (Protonix Tab) 40 mg DAILY@06 PO Last administered on 04/15/19at 06:26; Admin Dose 40 MG; Start 04/14/19 at 06:00 Metformin HCl (Glucophage) 500 mg WITH DINNER PO Last administered on 04/14/19at 17:13; Admin Dose 500 MG; Start 04/14/19 at 18:00 Diagnostic Test (Pha) (Accu-Chek) 1 ea AC MEALS AND BEDTIME XX Last administered on 04/15/19at 06:28; Admin Dose 1 EA; Start 04/13/19 at 21:00 Metformin HCl (Glucophage) 1,000 mg WITH BREAKFAST PO Last administered on 04/15/19at 08:06; Admin Dose 1,000 MG; Start 04/14/19 at 08:00 Diagnostic Test (Pha) (Accu-Chek) 1 ea AC MEALS AND BEDTIME XX ; Start 04/13/19 at 21:00 Miscellaneous Information 1 ea NOTE XX ; Start 04/13/19 at 19:30 Glucose (Glutose) 15 gm Q15M PRN PO DECREASED GLUCOSE; Start 04/13/19 at 19:30 Glucose (Glutose) 22.5 gm Q15M PRN PO DECREASED GLUCOSE; Start 04/13/19 at 19:30 Dextrose (D50w Syringe) 25 ml Q15M PRN IV DECREASED GLUCOSE; Start 04/13/19 at 19:30 Dextrose (D50w Syringe) 50 ml Q15M PRN IV DECREASED GLUCOSE; Start 04/13/19 at 19:30 Glucagon (Glucagen) 1 mg Q15M PRN IM DECREASED GLUCOSE; Start 04/13/19 at 19:30 Glucose (Glutose) 15 gm Q15M PRN BUCCAL DECREASED GLUCOSE; Start 04/13/19 at 19:30 VTE Prophylaxis Risk score (from Nsg)>0 risk: 8 SCD applied (from Nsg): Yes Lines/Catheters IV Catheter Type: Saline Lock Small in Place: No Assessment/Plan Assessment/Plan Symptomatic bradycardia Status post pacemaker placement Coronary artery disease Hypertension Type 2 diabetes mellitus Hyperlipidemia Arthritis Discharge to [facility] today Resume home medications Continue physical therapy VAHE MACKENZIE MD April 15, 2019 09:22
--- NOTE | 2019-04-15 12:42 | CONS ---
Consult Date/Type/Reason Admit Date/Time April 12, 2019 at 11:16 Initial Consult Date Requesting Provider: YOAN WINKLER MD Date/Time of Note DATE: 04/15/19 TIME: 12:40 Subjective No acute evens - pacer site looks well- dispo planned - will follow in office 1- 2 weeks for pacer check. Objective Vitals Vital Signs Date Temp Pulse Resp B/P (MAP) Pulse Ox O2 O2 Flow FiO2 Time Delivery Rate 04/15/19 98.3 93 20 138/72 90 11:33 (94) 04/15/19 Nasal 03:49 Cannula 04/13/19 2.0 20:00 Intake and Output 04/14/19 04/14/19 04/15/19 1515:00 23:00 07:00 IntakeIntake Total 880 ml 300 ml BalanceBalance 880 ml 300 ml Exam General: WN/WD/NAD, AOx 3 HEENT: Unicetric/atraumatic/EOMI (follow commands) NECK: JVD elevated, no thyromegaly Lymph: no lymphadenopathy HEART: regular with no S3, II/ systolic murmur at apex LUNGS: Coarse sounds ABD: soft, NT, ND, +BS : Intact Neuro: non focal SKIN: chronic changes EXT: trace edema Results/Medications Result Diagram: 04/13/19 0513 04/13/19 0513 Results 24 hrs Laboratory Tests Test 04/14/19 17:06 04/14/19 20:16 04/15/19 06:27 04/15/19 11:40 Bedside Glucose 161 224 H 163 219 Home Meds Active Scripts Metformin* (Glucophage*) 500 Mg Tab, 1000 MG PO WITH BREAKFAST for 30 Days, TAB Prov:VAHE MACKENZIE MD 04/15/19 Metformin* (Glucophage*) 500 Mg Tab, 500 MG PO WITH DINNER for 30 Days, TAB Prov:VAHE MACKENZIE MD 04/15/19 Pantoprazole* (Pantoprazole*) 40 Mg Tablet.dr, 40 MG PO DAILY@06 for 30 Days Prov:VAHE MACKENZIE MD 04/13/19 Lactulose* (Lactulose*) 20 Gm/30 Ml Solution, 20 GM PO DAILY PRN for CONSTIPATION for 10 Days Prov:VAHE MACKENZIE MD 04/13/19 Reported Medications Metformin* (Glucophage*) 500 Mg Tab, 500 MG PO WITH DINNER, #60 TAB 04/11/19 Metformin* (Glucophage*) 1,000 Mg Tablet, 1000 MG PO WITH BREAKFAST, #30 TAB 04/11/19 Chlorhexidine Gluconate* (Chlorhexidine Gluconate*) 118 Ml Liquid, 10 ML TOP DAILY for GARGLE, ML 04/10/19 Desvenlafaxine Succinate (Desvenlafaxine Succinate ER) 25 Mg Tab.er.24h, 1 TAB ORAL DAILY 04/10/19 Icosapent Ethyl (VASCEPA) 1 Gm Capsule, 1 CAP ORAL BID 04/10/19 Linaclotide (LINZESS) 145 Mcg Capsule, 1 CAP ORAL DAILY 04/10/19 Azilsartan-Chlorthalidone (Edarbyclor) 40-25 Mg Tablet, 1 TAB ORAL DAILY 04/10/19 Cholecalciferol* (Vitamin D3*) 1,000 Unit Tablet, 2000 UNIT PO DAILY, TAB 04/10/19 Sitagliptin* (Januvia*) 100 Mg Tablet, 1 TAB ORAL QHS 04/10/19 Solifenacin* (Vesicare*) 10 Mg Tablet, 1 TAB ORAL DAILY 04/10/19 Atorvastatin (Atorvastatin) 10 Mg Tablet, 1 TAB ORAL QHS 04/10/19 Diclofenac Sodium* (Voltaren* Gel) 1% -100 Gm Gel, 2 GM TOP TID, #1 TUB 04/10/19 Isosorbide Mononitrate* (Isosorbide Mononitrate*) 60 Mg Tab.er.24h, 1 TAB ORAL DAILY 04/10/19 Aspirin* (Aspirin* EC) 81 Mg Tablet.dr, 81 MG PO DAILY, TAB 04/10/19 Diphenhydramine Hcl (Banophen) 25 Mg Capsule, 1 CAP ORAL QHS 04/10/19 Metoprolol Tartrate* (Lopressor*) 50 Mg Tab, 1 TAB ORAL BID 04/10/19 Ferrous Sulfate* (Ferrous Sulfate*) 325 Mg Tabec, 1 TAB ORAL DAILY 04/10/19 Medications Current Medications Atorvastatin Calcium (Lipitor) 10 mg QHS PO Last administered on 04/14/19at 20:42; Admin Dose 10 MG; Start 04/10/19 at 21:00 Cholecalciferol (Vitamin D) 2,000 unit DAILY PO Last administered on 04/15/19at 08:48; Admin Dose 2,000 UNIT; Start 04/11/19 at 09:00 Diphenhydramine HCl (Benadryl) 25 mg QHS PO Last administered on 04/14/19at 20:19; Admin Dose 25 MG; Start 04/10/19 at 21:00 Isosorbide Mononitrate (Imdur) 60 mg DAILY PO Last administered on 04/15/19at 08:49; Admin Dose 60 MG; Start 04/11/19 at 09:00 Losartan Potassium (Cozaar) 50 mg DAILY PO Last administered on 04/15/19at 08:49; Admin Dose 50 MG; Start 04/11/19 at 09:00 Gemfibrozil (Lopid) 600 mg BID PO Last administered on 04/15/19at 08:49; Admin Dose 600 MG; Start 04/11/19 at 21:00 Docusate Sodium (Colace) 250 mg HS PO Last administered on 04/14/19 20:19; Admin Dose 250 MG; Start 04/10/19 at 21:00 Fentanyl (Sublimaze) 25 mcg PACU ORDER PRN IV MILD PAIN 1-3; Start 04/11/19 at 11:00 Fentanyl (Sublimaze) 50 mcg PACU ORDER PRN IV MOD PAIN 4-6; Start 04/11/19 at 11:00 Oxycodone/ Acetaminophen (Percocet (5/ 325)) 1 tab PACU ORDER PRN PO .PAIN 1-5; Start 04/11/19 at 11:00 Oxycodone/ Acetaminophen (Percocet (5/ 325)) 2 tab PACU ORDER PRN PO .PAIN 6-10; Start 04/11/19 at 11:00 Ondansetron HCl (Zofran Inj) 4 mg PACU ORDER PRN IV NAUSEA/VOMITING; Start 04/11/19 at 11:00 Labetalol HCl (Labetalol) 5 mg PACU ORDER PRN IV HIGH BLOOD PRESSURE; Start 04/11/19 at 11:00 Hydralazine HCl (Apresoline) 5 mg PACU ORDER PRN IV HIGH BLOOD PRESSURE; Start 04/11/19 at 11:00 Ephedrine Sulfate 5 mg PACU ORDER PRN IV BLOOD PRESSURE SUPPORT; Start 04/11/19 at 11:00 Morphine Sulfate (morphine) 2 mg Q2H PRN IV SEVERE PAIN LEVEL 7-10; Start 04/11/19 at 11:00 Cefazolin Sodium 50 ml @ 100 mls/hr Q12 IVPB Last administered on 04/15/19at 08:47; Admin Dose 100 MLS/HR; Start 04/11/19 at 21:00 Potassium Chloride (Klor-Con 10) 10 meq BID PO Last administered on 04/15/19at 08:49; Admin Dose 10 MEQ; Start 04/12/19 at 21:00 Lactulose (Enulose) 20 gm DAILY PRN PO CONSTIPATION; Start 04/13/19 at 11:00 Pantoprazole (Protonix Tab) 40 mg DAILY@06 PO Last administered on 04/15/19 06:26; Admin Dose 40 MG; Start 04/14/19 at 06:00 Metformin HCl (Glucophage) 500 mg WITH DINNER PO Last administered on 04/14/19at 17:13; Admin Dose 500 MG; Start 04/14/19 at 18:00 Diagnostic Test (Pha) (Accu-Chek) 1 ea AC MEALS AND BEDTIME XX Last administered on 04/15/19at 11:41; Admin Dose 1 EA; Start 04/13/19 at 21:00 Metformin HCl (Glucophage) 1,000 mg WITH BREAKFAST PO Last administered on 04/15/19 08:06; Admin Dose 1,000 MG; Start 04/14/19 at 08:00 Diagnostic Test (Pha) (Accu-Chek) 1 ea AC MEALS AND BEDTIME XX Last administered on 04/15/19 11:41; Admin Dose 1 EA; Start 04/13/19 at 21:00 Miscellaneous Information 1 ea NOTE XX ; Start 04/13/19 at 19:30 Glucose (Glutose) 15 gm Q15M PRN PO DECREASED GLUCOSE; Start 04/13/19 at 19:30 Glucose (Glutose) 22.5 gm Q15M PRN PO DECREASED GLUCOSE; Start 04/13/19 at 19:30 Dextrose (D50w Syringe) 25 ml Q15M PRN IV DECREASED GLUCOSE; Start 04/13/19 at 19:30 Dextrose (D50w Syringe) 50 ml Q15M PRN IV DECREASED GLUCOSE; Start 04/13/19 at 19:30 Glucagon (Glucagen) 1 mg Q15M PRN IM DECREASED GLUCOSE; Start 04/13/19 at 19:30 Glucose (Glutose) 15 gm Q15M PRN BUCCAL DECREASED GLUCOSE; Start 04/13/19 at 19:30 Assessment/Plan Hospital Course (Demo Recall) 1.pause s/p PPM POD- site looks well - will see in the office 1-2 weeks. 2.HTN 3.cad 4.DJD 5.anemia 6. Dyslipidemia DAWN GUZMAN MD April 15, 2019 12:42
== END 2019-04-15 15:19 | DRG 244 ==
LOC: E/R 12:35 → 6WM 15:02 → INTOOBSV 15:02 → OBSVTOIN 04-12 11:16
PROVIDERS: ADMIT Family Medicine; ATTEND Internal Medicine
PROC: 02HK3JZ Insertion of Pacemaker Lead into Right Ventricle, Percutaneous Approach (ICD-10-PCS; 2019-04-11)
PROC: 0JH604Z Insertion of Pacemaker, Single Chamber into Chest Subcutaneous Tissue and Fascia, Open Approach (ICD-10-PCS; principal; 2019-04-11 09:30)
DX: R00.1 Bradycardia, unspecified (principal); R55 Syncope and collapse; E11.8 Type 2 diabetes mellitus with unspecified complications; E86.0 Dehydration; I48.91 Unspecified atrial fibrillation; D64.9 Anemia, unspecified; I25.10 Atherosclerotic heart disease of native coronary artery without angina pectoris; E78.5 Hyperlipidemia, unspecified; I10 Essential (primary) hypertension; E87.6 Hypokalemia; M19.90 Unspecified osteoarthritis, unspecified site
CPT/HCPCS: 36415; 70450; 71045; 80048; 82962; 83880; 84484; 85025; 93005; 97116; 97161; 97165; 97530; 97535; 99217; G0378; J0690; J2250; J3010; J7040; Q9967